=== PATIENT | male | born 1980 | race Caucasian/White ===

== ENCOUNTER 2022-07-04 01:00 | Emergency (ER) | payer BC, OTHER ==
[~2022-07-04] VITALS: Ht 175.3 cm; Wt 95.3 kg
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
[2022-07-04] MEDS ORDERED: KETOROLAC TROMETHAMINE INJ 30 MG/ML VIAL ONE (02:12)
[2022-07-04] MEDS ORDERED: CYCLOBENZAPRINE 10 MG TABLET ONE (02:12)
--- NOTE | 2022-07-04 02:17 | NUR ---
PT RETURNED TO ER BED [address]
[2022-07-04] MEDS: KETOROLAC TROMETHAMINE INJ 30 MG/ML VIAL IM ONE (02:24)
[2022-07-04] MEDS: CYCLOBENZAPRINE 10 MG TABLET PO ONE (02:24)
[2022-07-04] MEDS ORDERED: KETO10TA2 PO (03:45)
[2022-07-04] MEDS ORDERED: CYCL5TAB PO (03:45)
[2022-07-04 03:49] VITALS: BP 144/78
--- NOTE | 2022-07-04 03:49 | NUR ---
Patient discharged to home in stable condition. Written and verbal after care instructions given. Patient verbalizes understanding of instruction.
== END 2022-07-04 03:50 | disposition home or self-care (01) ==
LOC: ER 01:00
DX: M54.2 Cervicalgia (principal); Z88.0 Allergy status to penicillin; Z60.2 Problems related to living alone; Z79.899 Other long term (current) drug therapy
CPT/HCPCS: 99284; 72125; 96372; J1885